=== PATIENT | female | born 1965 | race Caucasian/White ===

== ENCOUNTER 2019-01-16 18:25 | Emergency (ER) | payer SELFPAY ==
[~2019-01-16] VITALS: Ht 154.9 cm; Wt 68.0 kg
--- NOTE | 2019-01-16 18:51 | ED Lower Extremity ---
General Chief Complaint: Lower Extremity Stated Complaint: RT ANKLE PAIN/ INJ Nursing Triage Note: Patient states she missed a step going out her back door and fell, scraping her left knee and landing on her right ankle. She reports pain and swelling to the outside of her right ankle/foot. Nursing Sepsis Screen: No Definite Risk Source: patient History of Present Illness Date Seen by Provider: Jan 16, 2019 Time Seen by Provider: 18:50 Initial Comments 53-year-old female presenting with complaints of right ankle and foot pain. She reports that she was going down the steps hadn't her parent's house and fell missing a step. She scraped her left knee and landed on her right ankle rolling it. She was having severe pain in her rate ankle and foot. This got worse and she was walking on the leg. She then took 10 or 15 minutes of time and rest and when she went to get back up the foot and ankle was even worse. She initially thought that she maybe had just sprained it but because of the severe pain she now feels that she has broken it or done something more severe than just a sprain. She has not taken anything for pain at home. She was trying to ice it but felt that that was making the pain worse. Allergies and Home Medications Allergies Coded Allergies: No Known Drug Allergies (Unverified , 01/16/19) Home Medications Tramadol HCl 50 Mg Tablet, 50 MG PO Q6H PRN for PAIN Prescribed by: GT CROW on 01/16/192049 Patient Home Medication List Home Medication List Reviewed: Yes Review of Systems Constitutional: No chills, No dizziness, No fever EENTM: no symptoms reported Respiratory: no symptoms reported Cardiovascular: no symptoms reported Gastrointestinal: no symptoms reported Genitourinary: no symptoms reported Musculoskeletal: see HPI, joint pain (right ankle and foot pain and swelling.) Skin: other (abrasions and contusions to the left knee and lower leg) Psychiatric/Neurological: No Symptoms Reported Past Redxvid-Wihmow-Ommbik Hx Past Med/Social Hx: Reviewed Nursing Past Med/Soc Hx Patient Social History Recent Foreign Travel: No Contact w/Someone Who Travel: No Recent Infectious Disease Expo: No Past Medical History Surgeries: Yes (brain aneurysm) Physical Exam Vital Signs Vital Signs - First Documented 01/16/19 18:30 Temp 98.4 Pulse 70 Resp 18 B/P (MAP) 123/68 (86) Pulse Ox 99 O2 Delivery Room Air Capillary Refill : Less Than 3 Seconds Height, Weight, BMI Height: 5'1.00" Weight: 150lbs. oz. 68.033541nh; BMI Method:Stated General Appearance: WD/WN, no apparent distress HEENT: PERRL/EOMI, normal ENT inspection, pharynx normal Neck: non-tender, full range of motion, supple Cardiovascular: normal peripheral pulses Knees: bilateral knee normal range of motion; left knee soft tissue tenderness (mild), left knee swelling (mild), left knee other (abrasions to the left knee and contusions) Ankles: right ankle limited range of motion (Q-tip pain to the right ankle worse limited range of motion), right ankle pain (pain to the right ankle with some mild swelling) Neurologic/Tendon: normal sensation, normal motor functions, normal tendon functions 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 as tested, no motor/sensory deficits, alert, normal mood/affect, oriented x 3 Skin: warm/dry, other (abrasions and contusions to the left knee and lower leg) Progress/Results/Core Measures Results/Orders My Orders Orders - GT CROW MD Ketorolac Injection (Toradol Injection) (01/16/19 19:01) Ice: Apply To Affected Area (01/16/19 19:01) Elevate Affected Extremity (01/16/19 19:01) Foot 3 View Right (01/16/19 19:01) Ankle 3 View Right (01/16/19 19:01) Orthopedic Equiment (01/16/19 20:46) Rx-Tramadol Hcl (Rx-Ultram) (01/16/19 20:51) Vital Signs/I&O 01/16/19 01/16/19 18:30 20:57 Temp 98.4 Pulse 70 70 Resp 18 18 B/P (MAP) 123/68 (86) 123/68 (86) Pulse Ox 99 99 O2 Delivery Room Air Blood Pressure Mean: 86 Progress Progress Note #1: Progress Note Ice and elevation to the right ankle. Obtain x-rays of the right ankle and foot. She states that she is up-to-date for her tetanus for the abrasions and contusions to her left knee and lower leg. Toradol for pain. Progress Note #2: Progress Note No acute fracture or dislocation of the right ankle or foot off of the radiology report. Treat with a boot and crutches for weightbearing as tolerated. Continue on ibuprofen for pain and inflammation. Given a few tramadol here and a prescription for a few in case she needed them for pain beyond what she could manage with ibuprofen or acetaminophen. Counseled to follow up with clinic or orthopedics if she was not having improvement. Diagnostic Imaging Diagonstic Imaging: Xray Plain Films/CT/US/NM/MRI: ankle (and foot) Comments No acute fracture or dislocation of the right ankle and foot based off of report from Dr. Sukumar Brown read at 7:24 PM on 16 January Departure Impression Primary Impression: Right ankle sprain Qualified Codes: S93.401A - Sprain of unspecified ligament of right ankle, initial encounter Additional Impressions: Acute right ankle pain Abrasion, left knee, initial encounter Fall down stairs Qualified Codes: W10.8XXA - Fall (on) (from) other stairs and steps, initial encounter Disposition: 01 HOME, SELF-CARE Condition: Stable Departure-Patient Inst. Decision time for Depature: 20:49 Referrals: NO,LOCAL PHYSICIAN (PCP) Primary Care Physician Patient Instructions: Ankle Sprain (DC), How to Use Crutches, SPLINT CARE, Skin Abrasions (DC) Add. Discharge Instructions: Use crutches for weight bearing as tolerated Ice and elevate your right ankle to help with pain and swelling Ibuprofen to help with pain and swelling Tramadol for severe pain with your ankle Check with clinic for continued problems/concerns or if not improving within the next 7 to10 days All discharge instructions reviewed with patient and/or family. Voiced understanding. Scripts Tramadol HCl (Tramadol HCl) 50 Mg Tablet 50 MG PO Q6H PRN for PAIN for 3 Days, #12 TAB 0 Refills Prov: GT CROW MD 01/16/19 GT CROW MD Jan 16, 2019 18:50
[2019-01-16] MEDS ORDERED: KETOROLAC 60 MG/2 ML VIAL IM STA (19:01)
[2019-01-16] MEDS ORDERED: TRAM50TA2 PO (20:50)
[2019-01-16] MEDS ORDERED: RX-TRAMADOL 50 MG (ULTRAM) TAB PPK#4 PO STA (20:51)
[2019-01-16 20:57] VITALS: BP 123/68
--- NOTE | 2019-01-18 11:56 | Diagnostic Imaging Report ---
CLINICAL HISTORY: Fall with right ankle and foot pain. COMPARISON: None TECHNIQUE: 3 views of the right ankle and 3 views of the right foot. FINDINGS: No acute fracture or dislocation is seen in the right ankle and foot. Bone mineralization is normal. No focal osseous lesions. Soft tissues of the right ankle and foot are unremarkable. No large effusions. IMPRESSION: No acute fracture or dislocation the right ankle and foot. Dictated by: Dictated on workstation # [id number]
== END 2019-01-16 20:56 | disposition home or self-care (01) ==
LOC: ER FS 18:27
DX: S93.401A Sprain of unspecified ligament of right ankle, initial encounter (principal); S80.212A Abrasion, left knee, initial encounter; W10.9XXA Fall (on) (from) unspecified stairs and steps, initial encounter
CPT/HCPCS: 73610; 73630

== ENCOUNTER 2019-11-12 19:00 | Emergency (ER) | payer SELFPAY ==
[~2019-11-12] VITALS: Ht 154 cm; Wt 75.2 kg
[~2019-11-12 19:00] MED LIST: TRM50T PO
--- NOTE | 2019-11-12 19:16 | ED Lower Extremity ---
General Chief Complaint: Lower Extremity Stated Complaint: FOOT PAIN Source: patient Exam Limitations: no limitations History of Present Illness Date Seen by Provider: Nov 12, 2019 Time Seen by Provider: 19:10 Initial Comments The patient is a pleasant 54-year-old female who presents for evaluation of a right lateral foot injury. She states that a family member accidentally stepped on her foot and she felt a snap and had instant pain. She does mention that she previously injured this foot in terms of a tendon injury which required a cast but she did not have surgery. She was able to drive herself to the emergency department by using her left foot and was able to walk into the emergency department without any difficulty or assistance. She states that it does hurt to bear weight but she is able to walk. She has no other complaints and denies any ankle pain. She is alert and oriented 4, calm, and appears to be in no distress. Severity: moderate Pain/Injury Location: right foot Method of Injury: direct blow Modifying Factors: Improves With Movement (makes it worse) Allergies and Home Medications Allergies Coded Allergies: No Known Drug Allergies (Unverified , 01/16/19) Home Medications Tramadol HCl 50 Mg Tablet, 50 MG PO Q6H PRN for PAIN Prescribed by: GT CROW on 01/16/192049 Patient Home Medication List Home Medication List Reviewed: Yes Review of Systems Constitutional: no symptoms reported EENTM: no symptoms reported Respiratory: no symptoms reported Cardiovascular: no symptoms reported Gastrointestinal: no symptoms reported Genitourinary: no symptoms reported Musculoskeletal: joint pain (right lateral foot injury) Skin: no symptoms reported Psychiatric/Neurological: No Symptoms Reported All Other Systems Reviewed Negative Unless Noted: Yes Past Gmhnohq-Dxeggs-Zsjimf Hx Past Med/Social Hx: Reviewed Nursing Past Med/Soc Hx Patient Social History 2nd Hand Smoke Exposure: No Recent Foreign Travel: No Contact w/Someone Who Travel: No Recent Hopitalizations: No Seasonal Allergies Seasonal Allergies: No Past Medical History Surgeries: Yes (brain aneurysm) Hysterectomy, Orthopedic Respiratory: No Cardiac: Yes High Cholesterol Neurological: No Genitourinary: No Gastrointestinal: No Musculoskeletal: No Endocrine: No HEENT: No Cancer: No Psychosocial: No Integumentary: No Physical Exam Vital Signs Vital Signs - First Documented 11/12/19 19:06 Temp 36.7 Pulse 61 Resp 18 B/P (MAP) 125/82 (96) Pulse Ox 99 O2 Delivery Room Air Capillary Refill : Height, Weight, BMI Height: 5'1.00" Weight: 150lbs. oz. 68.804698yw; BMI Method:Stated General Appearance: WD/WN, no apparent distress HEENT: PERRL/EOMI, normal ENT inspection Neck: full range of motion, normal inspection Cardiovascular: regular rate, rhythm, no edema, no JVD Respiratory: lungs clear, normal breath sounds, no respiratory distress Hips: bilateral hip non-tender, bilateral hip normal inspection, bilateral hip normal range of motion, bilateral hip no evidence of injury Knees: bilateral knee non-tender, bilateral knee normal inspection, bilateral knee normal range of motion, bilateral knee no evidence of injury Ankles: bilateral ankle non-tender, bilateral ankle normal inspection, bilateral ankle normal range of motion, bilateral ankle no evidence of injury Feet: right foot bone tenderness (proximal 4th metatarsal ttp) 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 The patient states that she has crutches at home that she can use as needed. She declines any pain medicine here or to go home with. Advised the patient to follow-up with her PCP in the next 2-3 days as needed. The patient expresses verbal understanding and agreement with the plan and is stable for discharge. Diagnostic Imaging Diagonstic Imaging: Xray Comments [facility], [place] NAME: JACKIE [facility] REC#: [id number] PT STATUS: REG ER : 1965 PHYSICIAN: LEE MARMOLEJO DO ADMIT DATE: 11/12/19/ER FS Signed Date of Exam:11/12/19 FOOT 3 VIEW RIGHT INDICATION: Stepped on foot 2 days ago. Continued pain. Toe ring cannot be removed. EXAMINATION: Right foot from 11/12/2019 FINDINGS: 3 views of the foot compared to 01/16/2019. There is a metallic ring overlying the 2nd digit obscuring its evaluation. The visualized osseous structures intact. No dislocations or fractures appreciated. IMPRESSION: 1. No acute abnormality. Dictated by: Dictated on workstation # [id number] Dict: 11/12/191924 Trans: 11/12/191928 [facility] [id number] Interpreted by: CARLOS AGUILERA MD Electronically signed by: CARLOS AGUILERA MD 11/12/191928 Departure Impression Primary Impression: Contusion of right foot Disposition: HOME, SELF-CARE Condition: Stable Departure-Patient Inst. Decision time for Depature: 19:38 Referrals: KURTIS EVERETT MD (PCP/Family) Primary Care Physician Patient Instructions: Contusion (DC) Add. Discharge Instructions: Take Tylenol or ibuprofen and apply ice as needed to right foot. Follow-up with your doctor in the next 2-3 days. Return to the emergency Department immediately for new or worsening symptoms. LEE MARMOLEJO DO Nov 12, 2019 19:16
--- NOTE | 2019-11-12 19:30 | Diagnostic Imaging Report ---
INDICATION: Stepped on foot 2 days ago. Continued pain. Toe ring cannot be removed. EXAMINATION: Right foot from 11/12/2019 FINDINGS: 3 views of the foot compared to 01/16/2019. There is a metallic ring overlying the 2nd digit obscuring its evaluation. The visualized osseous structures intact. No dislocations or fractures appreciated. IMPRESSION: 1. No acute abnormality. Dictated by: Dictated on workstation # [id number]
[2019-11-12 19:45] VITALS: BP 125/82
--- OUTSIDE RECORDS SUMMARY | 2019-11-12 20:22 | XMS REPORT | Continuity of Care Document ---
Author Organization Unknown Address Unknown Phone Unavailable Allergies Active Description Code Type Severity Reaction Onset Reported/Identified Relationship to Patient Clinical Status Yes No Known Drug Allergies [id number] Drug Allergy Unknown N/A 01/16/2019 Medications There is no data. Problems Date Dx Coded Attending Type Code Diagnosis Diagnosed By 01/19/2019 GT CROW MD, Ot S80.212A ABRASION, LEFT KNEE, INITIAL ENCOUNTER 01/19/2019 GT CROW MD, Ot S93.401A SPRAIN OF UNSPECIFIED LIGAMENT OF RIGHT 01/19/2019 GT CROW MD, Ot S99.911A UNSPECIFIED INJURY OF RIGHT ANKLE, INITI 01/19/2019 GT CROW MD, Ot W10.9XXA FALL (ON) (FROM) UNSPECIFIED STAIRS AND Procedures There is no data. Results Test Result Range CBC With Differential/Platelet - 7 09:39 WBC 5.5 x10E3/uL 3.4-10.8 RBC 4.52 x10E6/uL 3.77-5.28 Hemoglobin 13.1 g/dL 11.1-15.9 Hematocrit 40.6 % 34.0-46.6 MCV 90 fL 79-97 MCH 29.0 pg 26.6-33.0 MCHC 32.3 g/dL 31.5-35.7 RDW 13.7 % 12.3-15.4 Platelets 314 x10E3/uL 150-379 Neutrophils 48 % Lymphs 38 % Monocytes 11 % Eos 2 % Basos 1 % Neutrophils (Absolute) 2.7 x10E3/uL 1.4- 7.0 Lymphs (Absolute) 2.1 x10E3/uL 0.7-3.1 Monocytes(Absolute) 0.6 x10E3/uL 0.1-0.9 Eos (Absolute) 0.1 x10E3/uL 0.0-0.4 Baso (Absolute) 0.0 x10E3/uL 0.0-0.2 Immature Granulocytes 0 % Immature Grans (Abs) 0.0 x10E3/uL 0.0-0. 1 Comp. Metabolic Panel (14) - 01/11/17 09 :39 Glucose, Serum 92 mg/dL 65-99 BUN 20 mg/dL 6-24 Creatinine, Serum 0.71 mg/dL 0.57-1.00 eGFR If NonAfricn Am 100 mL/min/1.73 >59 eGFR If Africn Am 116 mL/min/1.73 >5 9 BUN/Creatinine Ratio 28 9-23 Sodium, Serum 143 mmol/L 134-144 Potassium, Serum 5.2 mmol/L 3.5-5.2 Chloride, Serum 102 mmol/L 96-106 Carbon Dioxide, Total 26 mmol/L 18-29 Calcium, Serum 9.7 mg/dL 8.7-10.2 Protein, Total, Serum 6.8 g/dL 6.0-8.5 Albumin, Serum 4.4 g/dL 3.5-5.5 Globulin, Total 2.4 g/dL 1.5-4.5 A/G Ratio 1.8 1.2-2.2 Bilirubin, Total 0.2 mg/dL 0.0-1.2 Alkaline Phosphatase, S 103 IU/L 39-117 AST (SGOT) 16 IU/L 0-40 ALT (SGPT) 20 IU/L 0-32 Lipid Panel - 01/11/17 09:39 Cholesterol, Total 231 mg/dL 100-199 Triglycerides 182 mg/dL 0-149 HDL Cholesterol 55 mg/dL >39 VLDL Cholesterol Melvin 36 mg/dL 5-40 LDL Cholesterol Calc 140 mg/dL 0-99 TSH - 01/11/17 09:39 TSH 2.040 uIU/mL 0.450-4.500 Encounters ACCT No. Visit Date/Time Discharge Status Pt. Type Provider Facility Loc./Unit Complaint [id number] 05/04/2018 12:20:00 05/04/2018 23:59: 59 CLS Outpatient DIANA FLYNN [facility] [id number] 01/16/2019 18:27:00 019 20:56:00 DIS Outpatient TRISTIN MANCERA, GT [facility] ER FS RT ANKLE PAIN/ INJ [id number] 01/12/2017 10:08:00 Document Registration
== END 2019-11-12 19:45 | disposition home or self-care (01) ==
LOC: EDUNIT# 19:00 → ER FS 19:01
DX: S90.31XA Contusion of right foot, initial encounter (principal); W50.0XXA Accidental hit or strike by another person, initial encounter
CPT/HCPCS: 73630

== ENCOUNTER 2020-11-12 11:31 | Emergency (ER) | payer SELFPAY ==
[~2020-11-12] VITALS: Ht 154 cm; Wt 76.0 kg
[2020-11-12 11:40] VITALS: BP 149/71
[2020-11-12 11:52] LABS: COLOR,URINE YELLOW
[2020-11-12 11:53] LABS: BACTERIA,URINE TRACE /HPF; BILIRUBIN,URINE NEGATIVE (NEGATIVE); CLARITY,URINE SLT CLOUDY; GLUCOSE, URINE (UA) NEGATIVE (NEGATIVE); KETONES,URINE NEGATIVE (NEGATIVE); LEUKOCYTE ESTERASE ,URINE 1+ (NEGATIVE); NITRITE,URINE NEGATIVE (NEGATIVE); PROTEIN,URINE NEGATIVE (NEGATIVE); SQUAMOUS EPITHELIAL CELL,UR 0-2 /HPF
[2020-11-12] MEDS ORDERED: HYOS0.1283 SL (12:09)
--- NOTE | 2020-11-12 12:10 | ED Abdominal Pain ---
General Chief Complaint: General Problems/Pain Stated Complaint: SUPRAPUBIC PAIN Nursing Triage Note: PT REPORTS CRAMPS FOR 2 DAYS. ALSO HER LOW BACK HURTS. Sepsis Screen: No Definite Risk Source of Information: Patient History of Present Illness Date Seen by Provider: Nov 12, 2020 Time Seen by Provider: 12:00 Initial Comments 54-year-old female presents with 2 days of lower abdominal cramping and sharp pain. No associated nausea vomiting or diarrhea. Patient is had hysterectomy. Denies painful urination or blood in her urine or flank pain. Also complains of worsening of her chronic back pain for the past week and having trouble doing her work and is requesting work limitations. Has not seen her PCP for the same. Denies any radiation of pain to her lower extremities or weakness of her lower extremities. Denies loss of bowel or bladder control. Allergies and Home Medications Allergies Coded Allergies: No Known Drug Allergies (Unverified , 01/16/19) Home Medications Hyoscyamine Sulfate 0.125 Mg Tab.subl, 0.125 MG SL Q4H Prescribed by: LAUREN GARCIA on 11/12/20 1209 Tramadol HCl 50 Mg Tablet, 50 MG PO Q6H PRN for PAIN Prescribed by: GT CROW on 01/16/192049 Patient Home Medication List Home Medication List Reviewed: Yes Review of Systems Review of Systems Constitutional: No dizziness, No fever, No malaise, No weakness Respiratory: Denies Cough, Denies Shortness of Air Cardiovascular: Denies Chest Pain, Denies Edema Gastrointestinal: Denies Abdomen Distended; Abdominal Pain (intermittent sharp "cramping" pain, then resolves); Denies Constipated, Denies Diarrhea, Denies Nausea, Denies Poor Appetite, Denies Poor Fluid Intake, Denies Rectal Bleeding, Denies Vomiting Genitourinary: Denies Frequency, Denies Flank Pain, Denies Hematuria Musculoskeletal: back pain (low back); No joint pain; muscle pain (low back); No muscle weakness, No neck pain Skin: No change in color, No rash Psychiatric/Neurological: Denies Numbness, Denies Paresthesia, Denies Weakness Past Rsudvry-Wqgvvh-Zsmzao Hx Past Med/Social Hx: Reviewed Nursing Past Med/Soc Hx Patient Social History Alcohol Use: Denies Use Smoking Status: Never a Smoker 2nd Hand Smoke Exposure: No Recent Infectious Disease Expo: No Recent Hopitalizations: No Seasonal Allergies Seasonal Allergies: No Past Medical History Surgeries: Yes (brain aneurysm) Hysterectomy, Orthopedic Respiratory: No Cardiac: Yes High Cholesterol Neurological: 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 oz. 68.571087xp; 32.00 BMI Method:Stated General Appearance: WD/WN, no apparent distress Respiratory: chest non-tender, lungs clear, normal breath sounds Cardiovascular: regular rate, rhythm, no edema, no JVD Gastrointestinal: non tender, soft, no organomegaly Extremities: normal range of motion, non-tender, normal inspection Back: normal inspection, no CVA tenderness, no vertebral tenderness, muscle spasm (b/l lower lumbar paraspinal ms) Neurologic/Psychiatric: no motor/sensory deficits, alert Skin: normal color, warm/dry Progress/Results/Core Measures Results/Orders Lab Results Laboratory Tests Test 11/12/20 11:40 Range/Units Urine Color YELLOW Urine Clarity SLT CLOUDY Urine pH 6.0 5-9 Urine Specific Polaris >=1.030 1.016-1.022 Urine Protein NEGATIVE NEGATIVE Urine Glucose (UA) NEGATIVE NEGATIVE Urine Ketones NEGATIVE NEGATIVE Urine Nitrite NEGATIVE NEGATIVE Urine Bilirubin NEGATIVE NEGATIVE Urine Urobilinogen 0.2 < = 1.0 MG/DL Urine Leukocyte Esterase 1+ H NEGATIVE Urine RBC (Auto) TRACE H NEGATIVE Urine RBC NONE /HPF Urine WBC 2-5 /HPF Urine Squamous Epithelial Cells 0-2 /HPF Urine Crystals NONE /LPF Urine Bacteria TRACE /HPF Urine Casts NONE /LPF Urine Mucus SMALL H /LPF Urine Culture Indicated NO My Orders Orders - LAUREN GARCIA DO Urinalysis (11/12/20 11:35) Vital Signs/I&O 11/12/20 11:40 Temp 36.4 Pulse 66 Resp 18 B/P (MAP) 149/71 (97) Pulse Ox 99 O2 Delivery Room Air Blood Pressure Mean: 97 Departure Impression Primary Impression: Abdominal cramping Additional Impression: Low back strain Qualified Codes: S39.012A - Strain of muscle, fascia and tendon of lower back, initial encounter Disposition: 01 HOME, SELF-CARE Condition: Stable Departure-Patient Inst. Decision time for Depature: 12:08 Referrals: KURTIS LAND MD (PCP/Family) Primary Care Physician Patient Instructions: Low Back Pain (DC), Severe Abdominal Pain, Adult (DC) Add. Discharge Instructions: Call Dr Land to make a follow up appointment for release to work. RETURN to the ER in 24-48 hours if your abdominal pain is not improving or sooner if worse. All discharge instructions reviewed with patient and/or family. Voiced understanding. Scripts Hyoscyamine Sulfate (Levsin-Sl) 0.125 Mg Tab.subl 0.125 MG SL Q4H, #10 TAB 0 Refills Prov: LAUREN GARCIA DO 11/12/20 LAUREN GARCIA DO Nov 12, 2020 12:10
== END 2020-11-12 12:16 | disposition home or self-care (01) ==
LOC: EDUNIT# 11:31 → ER FS 11:33
DX: S39.012A Strain of muscle, fascia and tendon of lower back, initial encounter (principal); R10.30 Lower abdominal pain, unspecified; G89.29 Other chronic pain; M54.9 Dorsalgia, unspecified; Z90.711 Acquired absence of uterus with remaining cervical stump; X58.XXXA Exposure to other specified factors, initial encounter
CPT/HCPCS: 81000; 99281

== ENCOUNTER 2021-05-12 16:18 | Emergency (ER) | payer BC ==
[~2021-05-12] VITALS: Ht 154 cm; Wt 76.0 kg
[~2021-05-12 16:18] MED LIST changes: +HYOS0.1283 SL
--- OUTSIDE RECORDS SUMMARY | 2021-05-12 16:22 | XMS REPORT | Clinical Summary ---
Author Author [facility] Organization [facility] Address Unknown Phone Unavailable Care Team Providers Care Mold Release Worker Name Role Phone Lisa Hull MD PCP Allergies No known active allergies Medications No known medications Active Problems Problem Noted Date Bilateral impacted cerumen 05/21/2015 Acute head injury without loss of consciousness 04/24 Overview: Formatting of this note might be differ ent from the original. Thrown from a horse 2 months ago with h ead injury. Symptoms of vertigo started after. Vertigo 05/21/2015 Pleurisy 01/03/2013 Overview: Formatting of this note might be differ ent from the original. ICD-10 conversion Chest pain 01/03/2013 Overview: Formatting of this note might be differ ent from the original. ICD-10 conversion Hyperlipidemia 10/18/2012 Overview: Formatting of this note might be differ ent from the original. ICD10 Abnormal weight gain 10/17/2012 Nephrolithiasis 10/17/2012 Family History Medical History Relation Name Comments Coronary artery disease Father 3-vessel Coron yonatan Artery Stenosis; Stroke Mother Stroke Syndrome; Hyperlipidemia Other Family History; Dys lipidemia; Relation Name Status Comments Father Mother Other Social History Date Tobacco Use Types Packs/Day Years Used Never Smoker Comments Alcohol Use Standard Drinks/Week No 0 (1 standard drink = 0.6 o z pure alcohol) Sex Assigned at Date Recorded Not on file Last Filed Vital Signs Reading Time Taken Comments Vital Sign 104/64 05/21/2015 10:19 AM 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 Blood Pressure 79 05/21/2015 10:19 AM 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 Pulse - - Temperature - - Respiratory Rate - - Oxygen Saturation - - Inhaled Oxygen Concentration 75.4 kg (166 lb 5 oz) 05/21/2015 10:19 AM 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 Weight 154.9 cm (5' 1") 05/21/2015 10:19 AM 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 Height 31.42 05/21/2015 10:19 AM 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 Body Mass Index Plan of Treatment Health Maintenance Due Date Last Done Comments Td/Tdap# 1965 Cervical Cancer Screening 10/17/2009 10/17/2006 via Pap Smear Zoster Vaccine# (1 of 2) 2017 Influenza Vaccine (#1) 2021 Pneumococcal Vaccine: Aged Out No longer eligib le based on patient's age to Pediatrics (0 to 5 Years) complete this topic and At-Risk Patients (6 to 64 Years) Results Not on filefrom Last 3 Months Insurance Type Payer Benefit Subscriber ID Effective Phone Address Plan / Dates Group COMMERCIAL-NONCONTRACTED [facility] [place] [place] [id number] 2013 [address] COMMERCIAL -Present [employer] [place] [place] [id number] [place]Home) [place] [phone] Chavarria Personal/F Self [phone] [place] (Home) [place] [phone] Care Teams Start Date End Date Mold Release Worker Relationship Specialty 08/19/14 Lisa Hull MD PCP - General [address] [facility] [place] [address] [place] [id number]
[2021-05-12 17:13] VITALS: BP 124/73
--- NOTE | 2021-05-12 17:22 | ED Cough/URI ---
General Chief Complaint: COVID19 Suspect/Confirmed Stated Complaint: DIZZY Nursing Triage Note: PT REPORTS SHE GOT LIGHTHEADED AT WORK EARLIER, COUGH X 2 DAYS, AND TODAY STARTED SMELLING AND TASTING A METALLIC TASTE. Source: patient Exam Limitations: no limitations History of Present Illness Date Seen by Provider: May 12, 2021 Time Seen by Provider: 17:00 Initial Comments Patient is 55-year-old female presents with nasal congestion rhinorrhea, nonproductive cough with loss of taste starting 3 days ago. Patient also feels dizziness while at work. No fever chills, nausea vomiting or sweats. No headache, sinus fullness, tenderness, no other acute symptoms or complaints. Patient recent exposure to influenza and Covid. Patient has not received Covid or influenza vaccines. Timing/Duration: just prior to arrival Severity/Quality: moderate Prior Episodes/Possible Cause: other Modifying Factors: Improves With Other Associated Symptoms: other Allergies and Home Medications Allergies Coded Allergies: No Known Drug Allergies (Unverified , 01/16/19) Patient Home Medication List Home Medication List Reviewed: Yes Hyoscyamine Sulfate (Levsin-Sl) 0.125 Mg Tab.subl, 0.125 MG SL Q4H Prescribed by: LAUREN GARCIA on 11/12/20 1209 Tramadol HCl (Tramadol HCl) 50 Mg Tablet, 50 MG PO Q6H PRN for PAIN Prescribed by: GT CROW on 01/16/192049 Review of Systems Review of Systems Constitutional: see HPI EENTM: see HPI Respiratory: see HPI Cardiovascular: see HPI Gastrointestinal: see HPI Musculoskeletal: see HPI Skin: see HPI Psychiatric/Neurological: See HPI Hematologic/Lymphatic: See HPI Immunological/Allergic: see HPI All Other Systems Reviewed Negative Unless Noted: Yes Past Qoltfxp-Nwckca-Bprfrj Hx Patient Social History Tobacco Use?: No Use of E-Cig and/or Vaping dev: No Substance use?: No Alcohol Use?: No Seasonal Allergies Seasonal Allergies: No Past Medical History Surgery/Hospitalization HX: HYSTERECTOMY Surgeries: Yes (brain aneurysm) Hysterectomy, Orthopedic Respiratory: No Cardiac: Yes High Cholesterol Neurological: No BRAZER INDUCTION History: Hysterectomy Genitourinary: No Gastrointestinal: No Musculoskeletal: No Endocrine: No HEENT: No Cancer: No Psychosocial: No Integumentary: No Physical Exam Vital Signs - First Documented 05/12/21 16:24 Temp 36.4 Pulse 60 Resp 20 B/P (MAP) 124/73 (90) Pulse Ox 96 O2 Delivery Room Air Capillary Refill : Less Than 3 Seconds Height: 5'1.00" Weight: 150lbs. oz. 68.208224hp; 32.00 BMI Method:Stated General Appearance: WD/WN, no apparent distress Eyes: Bilateral Eye Normal Inspection, Bilateral Eye PERRL, Bilateral Eye EOMI HEENT: PERRL/EOMI, TMs normal, pharynx normal, other (nasal congestion. clear rhinorhea. No sinus ttp.) Neck: non-tender, full range of motion, supple Respiratory: lungs clear, normal breath sounds Cardiovascular: normal peripheral pulses, regular rate, rhythm Gastrointestinal: normal bowel sounds, non tender, soft Extremities: normal range of motion, non-tender Neurologic/Psychiatric: alert, normal mood/affect, oriented x 3 Skin: normal color Progress/Results/Core Measures Suspected Sepsis SIRS Temperature: Pulse: 60 Respiratory Rate: 20 Blood Pressure 124 /73 Mean: 90 Results/Orders Lab Results Laboratory Tests Test 05/12/21 16:30 Range/Units Glucometer 107 70-110 MG/DL My Orders Orders - LONG CALVIN DO Covid 19 Inhouse Test (05/12/21 16:52) Influenza A And B By Pcr (05/12/21 16:52) Isolation Central Supply Req (05/12/21 16:52) Vital Signs/I&O 05/12/21 05/12/21 16:24 17:13 Temp 36.4 36.4 Pulse 60 60 Resp 20 20 B/P (MAP) 124/73 (90) 124/73 Pulse Ox 96 96 O2 Delivery Room Air Room Air Capillary Refill : Less Than 3 Seconds Blood Pressure Mean: 90 Departure Communication (Admissions) Symptoms concerning for viral URI with possible COVID. Send out testing obtained. Recommendations are watchful waiting supportive care with home self quarantine. Return precautions reviewed. Patient verbalizes understanding agreement with discharge instructions prior to departure Impression Primary Impression: Viral syndrome Disposition: 01 HOME, SELF-CARE Condition: Stable Departure-Patient Inst. Decision time for Depature: 17:25 Referrals: KURTIS EVERETT MD (PCP/Family) Primary Care Physician Patient Instructions: Viral Syndrome (DC) Add. Discharge Instructions: You were evaluated the emergency department for cough, congestion and change of taste. Send out Covid testing has been obtained it is pending. Please take MucinexD for nasal congestion cough and ibuprofen for body aches. Increase fluids and continue to self quarantine until you clinically improved. Follow-up with your PCP as needed. Return to the ED if worse. All discharge instructions reviewed with patient and/or family. Voiced understanding. Scripts Guaifenesin/Dextromethorphan (Mucinex Dm ER 1,200-60 mg Tab) 1 Each Tbmp.12hr 1 EACH PO BID, #20 EA Prov: LONG CALVIN DO 05/12/21 Work/School Note: Family Work Note Patient Received Medical Care In the Emergency Department On: May 12, 2021 Patient Will Be Able to Return to Work/School On: May 18, 2021 Patient Restrictions: none LONG CALVIN DO May 12, 2021 17:22
[2021-05-12] MEDS ORDERED: GUAI1TBM19 PO (17:27)
== END 2021-05-12 17:28 | disposition home or self-care (01) ==
LOC: EDUNIT# 16:18 → ER FS 16:19
DX: U07.1 COVID-19 (principal)
CPT/HCPCS: 82947; 87636